=== PATIENT | female | born 1995 | race Caucasian/White ===

== ENCOUNTER 2017-10-26 19:01 | Emergency (ER) | payer OTHER ==
[2017-10-26 19:08] VITALS: RESP 18
--- NOTE | 2017-10-26 19:27 | EDPHY ---
H & P Stated Complaint: Door at work hit pt in head earlier today;no LOC;just wants to be checked Time Seen by Provider: 10/26/17 19:27 HPI/ROS: CHIEF COMPLAINT: Minor head injury HISTORY OF PRESENT ILLNESS: The patient presents to the ED for evaluation of minor head injury. She was accidentally struck in the left side of her head at work today by a door. The patient did not sustain a loss of consciousness. She has had some palpable reproducible pain since that time. She is not anticoagulated. She denies any neck pain, weakness, numbness or additional traumatic complaints. The patient denies significant past medical history. REVIEW OF SYSTEMS: A comprehensive 10 point review of systems is otherwise negative aside from elements mentioned in the history of present illness. Source: Patient Exam Limitations: No limitations - Personal History LMP (Females 10-55): 15-21 Days Ago Current Tetanus Diphtheria and Acellular Pertussis (TDAP): Unsure - Medical/Surgical History Other PMH: healthy - Social History Smoking Status: Never smoked - Physical Exam Exam: General Appearance: Alert, no distress Head: Atraumatic, no hematoma, no palpable bony tenderness Eyes: Pupils equal, round, reactive ENT, Mouth: No hemotympanum, no oral trauma Neck: Nontender, trachea midline Respiratory: No chest wall tender, subcutaneous air, lungs clear bilaterally Cardiovascular: Regular rate and rhythm Abdomen: Abdomen is soft and nontender, pelvis stable Skin: No lacerations, No abrasion Back: No midline T/L/S pain Extremities: Nontender, full range of motion Neurological: A&Ox3, normal motor function, normal sensory exam, GCS 15 Constitutional: Initial Vital Signs Temperature (C) 36.4 C 10/26/17 19:05 Heart Rate 94 10/26/17 19:05 Respiratory Rate 18 10/26/17 19:05 Blood Pressure 134/97 H 10/26/17 19:05 O2 Sat (%) 98 10/26/17 19:05 O2 Delivery Mode Room Air Allergies/Adverse Reactions: No Known Allergies Allergy (Unverified 10/26/17 19:05) Home Medications: Medication Instructions Recorded Fluticasone Nasal [Flonase Nasal 1 sprays NASAL DAILY 10/26/17 Post (RX)] Medical Decision Making ED Course/Re-evaluation: The patient presents the ED with minor head trauma. She has no concussive symptoms. She has no palpable skull fracture. She has no hematoma. She is well-appearing clinically. I do not feel that a CT scan of the head is indicated as I doubt intracranial hemorrhage. The patient can reliably observe her symptoms at home and return to to see us for any progressively worsening headache, the development of neurologic symptoms, difficulty with speech less ambulation or vomiting. The patient will be advised to use ice and Tylenol and Motrin for management of her symptoms. Differential Diagnosis: Differential diagnosis considered includes intracranial hemorrhage, skull fracture, concussion, contusion, hematoma Departure - Departure Disposition: Home, Routine, Self-Care Clinical Impression: Scalp contusion Condition: Good Instructions: Contusion in Children (ED) Additional Instructions: 1. Take Ibuprofen or Motrin 600 mg by mouth three times a day. 2. Tylenol 650 mg every 6 hr for pain. 3. Ice 20-30 minutes at a time 4 to 5 times a day for next day. 4. Return to the ED immediately for worsening headache, vomiting, the development of neurologic symptoms such as numbness, weakness, difficulty with speech or walking. 5. You have been given the number of our on-call primary care provider if you wish to establish local primary care. Referrals: Marilee Bell MD [[facility] [place] Primary Care Provider] - As per Instructions
[2017-10-26 19:59] VITALS: BP 115/78; PULSE 70; TEMP 98.6; O2SAT 97
== END 2017-10-26 20:00 | disposition home or self-care (01) ==
DX: S00.03XA Contusion of scalp, initial encounter (principal); W22.8XXA Striking against or struck by other objects, initial encounter; Y92.69 Other specified industrial and construction area as the place of occurrence of the external cause; Y99.0 Civilian activity done for income or pay; Y93.89 Activity, other specified